=== PATIENT | male | born 1955 | race Caucasian/White ===

== ENCOUNTER 2022-11-06 09:09 | Outpatient (OUT) | payer MEDICARE, SELFPAY ==
--- NOTE | 2022-11-06 09:16 | XR_ITS ---
[address] [address] Patient Name: MEGHA ALFORD MRN: [id number] date: 1955 Sex: M Assigned Patient Location: [facility] Current Patient Location: [facility] Accession/Order Number: [id number] Exam Date: 11/06/2022 09:15 Report Date: 11/06/2022 10:44 At the request of: FLORENTINO VILLAGOMEZ Procedure: XR foot RT min 3V PROCEDURE: XR ankle RT min 3V, XR foot RT min 3V COMPARISON: 06/26/2022 HISTORY: RIGHT ANKLE PAIN FINDINGS: BONES:Stable postsurgical changes. Posterior calcaneal osteotomy transfixed with 2 cannulated lag screws. Transverse osteotomy base of the first metatarsal fixed with a dorsal surgical staple. Incomplete bony bridging. No acute fracture or dislocation. No mechanical failure. Moderate diffuse degenerative changes with joint space narrowing and marginal osteophyte formation most significant along the tarsometatarsal and first metatarsal-phalangeal joints SOFT TISSUES:Negative. No visible soft tissue swelling. EFFUSION:None visible. OTHER: Negative. IMPRESSION: Stable degenerative and postsurgical changes Electronically authenticated by: JACOBY ORLANDO Date: 11/06/2022 10:44
--- NOTE | 2022-11-06 09:26 | XR_ITS ---
[address] [address] Patient Name: MEGHA ALFORD MRN: [id number] date: 1955 Sex: M Assigned Patient Location: [facility] Current Patient Location: [facility] Accession/Order Number: [id number] Exam Date: 11/06/2022 09:26 Report Date: 11/06/2022 10:44 At the request of: FLORENTINO VILLAGOMEZ Procedure: XR ankle RT min 3V PROCEDURE: XR ankle RT min 3V, XR foot RT min 3V COMPARISON: 06/26/2022 HISTORY: RIGHT ANKLE PAIN FINDINGS: BONES:Stable postsurgical changes. Posterior calcaneal osteotomy transfixed with 2 cannulated lag screws. Transverse osteotomy base of the first metatarsal fixed with a dorsal surgical staple. Incomplete bony bridging. No acute fracture or dislocation. No mechanical failure. Moderate diffuse degenerative changes with joint space narrowing and marginal osteophyte formation most significant along the tarsometatarsal and first metatarsal-phalangeal joints SOFT TISSUES:Negative. No visible soft tissue swelling. EFFUSION:None visible. OTHER: Negative. IMPRESSION: Stable degenerative and postsurgical changes Electronically authenticated by: JACOBY ORLANDO Date: 11/06/2022 10:44
== END 2022-11-06 09:10 | disposition home or self-care (01) ==
PROVIDERS: Visit Provider Podiatrist Foot & Ankle Surgery
DX: M19.071 Primary osteoarthritis, right ankle and foot (principal); Z98.890 Other specified postprocedural states
CPT/HCPCS: 73610; 73630